=== PATIENT | female | born 1975 | race Caucasian/White ===

== ENCOUNTER 2016-11-01 11:36 | Emergency (ER) | payer MEDICARE, OTHER ==
[2016-11-01 11:38] LABS: ASCORBIC ACID (UR NOT ORDER) 40 (NEG); BILIRUBIN, URINE NEGATIVE (NEG); ER URINALYSIS TAT 0 Hrs 20 Mins; KETONE, URINE TRACE MG/DL (NEG); LEUKOCYTE ESTERASE(NOT OR NEG (NEG); NITRITE (URINE) NEG (NEG); WBC (NOT ORDERED) (RFLEX) 9 (0-5)
[2016-11-01 13:05] LABS: BASOPHILS 0.2 %; BASOPHILS ABSOLUTE 0.02 10/3/uL (0.0-0.16); EOSINOPHILS 1.4 %; EOSINOPHILS ABSOLUTE 0.12 10/3/uL (0.0-0.53); ER CBC TAT 0 Hrs 08 Mins; HEMATOCRIT 38.3 % (36.0-48.0); HEMOGLOBIN 13.4 g/dL (12.0-16.0); IMMATURE GRANULOCYTES 0.1 %; IMMATURE GRANULOCYTES ABSOLUTE 0.01 10/3/uL (0.0-0.11); LYMPHOCYTES 23.1 %; LYMPHOCYTES ABSOLUTE 2.05 10/3/uL (0.67-4.30); MEAN CORPUSCULAR HEMOGLOB 31.5 pg (26.0-34.0); MEAN CORPUSCULAR VOLUME 89.9 fL (80-100); MEAN PLATELET VOLUME 9.4 fL (9.2-13.0); MONOCYTES 4.4 %; MONOCYTES ABSOLUTE 0.39 10/3/uL (0.21-1.20); NEUTROPHILS 70.8 %; NEUTROPHILS ABSOLUTE 6.29 10/3/uL (2.02-8.40); PLATELET COUNT 274 10/3/uL (150-400); RBC DISTRIBUTION WIDTH 12.7 % (12.0-16.0); RED CELL COUNT 4.26 10/6/uL (4.0-5.6); WHITE BLOOD CELLS 8.9 10/3/uL (4.5-10.5)
[2016-11-01 13:06] LABS: MANUAL DIFF NO %
[2016-11-01 13:22] LABS: A/G RATIO 1.2 (0.7-1.9); ALBUMIN 4.2 G/DL (3.5-5.0); ALKALINE PHOSPHATASE 55 U/L (45-117); BUN (BLOOD UREA NITROGEN) 11 MG/DL (6-23); CALCIUM, SERUM 9.6 MG/DL (8.5-10.4); CHLORIDE, SERUM 105 MMOL/L (96-112); CO2 (CARBON DIOXIDE) 28 MMOL/L (24-34); CREATININE 0.71 MG/DL (0.55-1.02); DEPAKENE (VALPROIC ACID) 38.9 MCG/ML (50.0-100.0); GFR AFRICAN AMERICAN 122 ML/MIN (>=60); GFR NON AFRICAN AMERICAN 105 ML/MIN (>=60); GLOBULIN 3.4 G/DL (2.5-4.1); GLUCOSE, SERUM 103 MG/DL (60-99); POTASSIUM, SERUM 4.2 MMOL/L (3.5-5.3); SGOT(AST) 7 U/L (5-40); SGPT(ALT) 15 U/L (5-65); SODIUM, SERUM 142 MMOL/L (135-148); TOTAL BILIRUBIN 0.4 MG/DL (0-1.2); TOTAL PROTEIN 7.6 G/DL (6.0-8.5)
[2016-11-18] MEDS ORDERED: TRAZODONE150 MG PO (13:26)
[2016-11-18] MEDS ORDERED: NEUR400 PO (13:26)
[2016-11-18] MEDS ORDERED: TOPXL50 PO (13:26)
[2016-11-18] MEDS ORDERED: DEPAKOT250 PO (13:27)
[2016-11-18] MEDS ORDERED: BENTYL20 PO (13:27)
[2016-11-18] MEDS ORDERED: PROTONIX PO (13:28)
[2016-11-18] MEDS ORDERED: PR12.5R PR (13:28)
[2016-11-18] MEDS ORDERED: SEROQUEL1C PO (13:29)
[2016-11-18] MEDS ORDERED: NAP500 PO (13:29)
[2016-11-18] MEDS ORDERED: DOLOPHINE10 MG PO (13:30)
[2016-11-18] MEDS ORDERED: ERY-TAB250 MG PO (13:32)
== END 2016-11-01 15:55 | disposition home or self-care (01) ==
LOC: ER 11:36
PROVIDERS: Emergency Medicine
DX: R10.9 Unspecified abdominal pain (principal); R11.2 Nausea with vomiting, unspecified; Z88.0 Allergy status to penicillin; Z88.5 Allergy status to narcotic agent; Z88.8 Allergy status to other drugs, medicaments and biological substances
CPT/HCPCS: 74176; 80053; 80164; 81001; 83605; 83690; 84703; 85025; 93005; 96374; 99284; J2405